=== PATIENT | female | born 1950 | race Caucasian/White ===

== ENCOUNTER → 2018-01-15 09:34 | Outpatient (CLI) | payer OTHER, SELFPAY ==
--- NOTE | 2018-01-15 | DI.MRI.S_ITS ---
PROCEDURE: MR PELVIS WO/W CON INDICATIONS: 68 year-old female with uterine fibroids and right hip region pain. TECHNIQUE: Coronal HASTE, sagittal breath-hold T2 FSE; axial T1 FSE with and without fat saturation through the pelvis. Optional long- and short-axis uterine nonbreath-hold T2 FSE through the uterus. Sagittal or axial dynamic VIBE during administration of contrast. Post-contrast axial or coronal VIBE/2-D FLASH with fat saturation from the iliac crests to the symphysis. Optional diffusion weighted imaging and ADC may be performed. COMPARISON: [facility] Outside Film, CR, XR HIP 2 VIEWS RIGHT, 11/22/2017, 11:00. [facility], CT, ABDOMEN/PELVIS WITHOUT CONTRAS, 02/28/2016, 8:41. FINDINGS: Image quality: Excellent. Uterus: Uterus is normal in size, but demonstrates a 4.4 cm round right fundal subserosal fibroid, with predominant low T2 signal corresponding with calcification on comparison radiograph and CT. Sagittal images demonstrate 2 additional 10 mm posterior subserosal uterine fibroids. Endometrium is normal in thickness at 3 mm. Junctional zone is normal in thickness at 12 mm or less. Adnexa: Both postmenopausal ovaries are normal in size, without suspicious cystic or solid lesions. Urinary system: Bladder wall is normal in thickness. Distal ureters are non distended. Urethra appears normal in morphology. Nodes and vessels: No pelvic or inguinal adenopathy by size criteria. Iliac vessels are normal in size. Bowel and peritoneum: No pathologic free pelvic fluid. Inferior colon and small bowel loops are normal in caliber. Soft tissues: No inguinal hernias. No findings of pelvic floor incompetence in the absence of provocation. The gluteus medius tendinous tendons demonstrate normal signal, without tears. Bones: Marrow demonstrates normal overall signal. There is lower lumbar spine moderate disc degeneration. No hip joint degeneration. IMPRESSION: 1. Three subserosal uterine fibroids, measuring up to 4.4 cm with peripheral calcification in the right uterine fundus, not significantly changed since 2015. 2. No imaging explanation for right hip region pain. 3. Lower lumbar spine disc degeneration. Dictated by: Fausto Monaco M.D. on 01/15/2018 at 12:11 Approved by: Fausto Monaco M.D. on 01/15/2018 at 12:28
== END ==
PROVIDERS: PCP Family Medicine Geriatric Medicine; Visit Provider Family Medicine Geriatric Medicine
DX: D25.2 Subserosal leiomyoma of uterus (principal); M25.551 Pain in right hip; M51.36 Other intervertebral disc degeneration, lumbar region
CPT/HCPCS: 72197

== ENCOUNTER 2019-04-01 09:27 | Day surgery (SDC) | payer OTHER, SELFPAY ==
--- NOTE | 2019-04-01 | PATH_ITS ---
[facility] Accession Number: [id number] . 01 Material submitted: . PART A: small bowel - SMALL BOWEL BIOPSIES PART B: gastrointestinal site - STOMACH BIOPSIES . 01 Clinical history: . A. R/O CELIAC B. R/O H. PYLORI EGD W/POSS BX . 02 Diagnosis: A. Small Bowel Biopsy: Fragments of normal duodenum mucosa. Normal delicate mucosal villi present. Negative for significant inflammtion, dysplasia, and malignancy. . B. Stomach, Biopsies: Mucosal hyperemia without associated significant inflammation involving the antral and fundic mucosa. Negative for evidence of Helicobacter on H/E stain. Negative for intestinal metaplasia. Negative for dysplasia and malignancy. [facility]/04/02/2019 . 02 Electronically signed: . Dilip Sal MD, Pathologist NPI- [id number] . 01 Gross description: . Part A: SMALL BOWEL BIOPSIES: Received in formalin are 2 fragment(s) of wallis, soft tissue measuring 0.1 x 0.1 x 0.1 cm to 0.2 x 0.2 x 0.2 cm which is entirely submitted and submitted entirely in 1 cassette(s) Part B: STOMACH BIOPSIES: Received in formalin are 2 fragment(s) of wallis, soft tissue measuring 0.1 x 0.1 x 0.1 cm to 0.2 x 0.1 x 0.1 cm which is entirely submitted and submitted entirely in 1 cassette(s) /D[facility] /[facility] . 02 Pathologist provided ICD-10: K21.0 . 02 CPT . 717449, [id number] Performed at: [address], [place], [place] [id number] MD Elliott Key MD Phone: [phone] Performed at: 02 [facility] [address] [address] [place] [id number] MD Radha Samuels MD Phone: [phone]
[2019-04-01] MEDS: SODIUM CHLORIDE 0.9% 1,000 ML 42 ML IV (09:47)
[2019-04-01 09:59] VITALS: BP 125/71; PULSE 78; RESP 14; TEMP 36.5; O2SAT 94; BMI 19.5
--- NOTE | 2019-04-01 11:23 | PM.HP.1 ---
History of Present Illness History of Present Illness Date Patient Seen: 04/01/19 Time Patient Seen: 11:23 Chief complaint: [id number] EGD W/POSS BX Narrative: Anemia Patient History Medical History (Updated 04/01/19 @ 10:01 by Jennifer Enriquez, RN) Anemia (Acute ~07/2018) Basal cell carcinoma (Acute) Bursitis of hip, right (Acute) Cataract fragments in both eyes following surgery (Acute) Diverticulosis (Acute) GE reflux (Acute) Hyperlipidemia (Acute) Iron deficiency anemia (Acute) Surgical History (Updated 04/01/19 @ 09:57 by Jennifer Enriquez RN) H/O hernia repair (Acute) H/O shoulder surgery (Acute) History of colonoscopy (Acute) History of tonsillectomy (Acute) Social History household members: spouse Family & Social History Social History: household members spouse Meds Home Medications and Allergies Home Medications Medication Instructions Recorded Confirmed Type calcium carbonate-vitamin D3 cap PO BID 04/01/19 History [Calcium 600 + D(3)] ranitidine HCl 150 mg PO DAILY PRN 04/01/19 04/01/19 History Allergies Allergy/AdvReac Type Severity Reaction Status Date / Time adhesive tape AdvReac Mild Itching, Verified 04/01/19 09:48 Hives Exam Vital Signs (past 8 hours): - 04/01/19 09:59 Temperature 97.7 F Pulse Rate 78 Respiratory Rate 14 Blood Pressure 125/71 Pulse Oximetry 94 Oxygen Delivery Method Room Air Narrative Exam Narrative: Oropharynx free of lesions Chest clear to auscultation percussion Cardiac exam reveals no S3 or murmur Assessment & Plan Assessment & Plan narrative: Anemia with negative colonoscopy. Need for upper tract evaluation and biopsies for celiac. Risks, benefits, alternatives have been explained.
--- NOTE | 2019-04-01 11:24 | PM.OP.ENDO ---
Operative Date/Time/Diagnoses Date of procedure: 04/01/19 Time of procedure: 11:24 Pre-op diagnosis: See indication and findings Procedure & Clinicians Study performed: EGD with biopsy Same procedure as scheduled: Yes Indications: Anemia with negative colonoscopy Surgeon: Elmer Lizama Procedure Notes Procedure in detail: After informed consent was obtained the patient was placed in left lateral decubitus position. The video upper scope was placed into the oropharynx with the patient's help solid into the esophagus. The esophagus, stomach, and duodenum were carefully examined. On withdrawal, retroflexed view the GE junction was performed. The scope was removed. The patient tolerated procedure well. Blood loss none Complications none Sedation Total sedation time
--- NOTE | 2019-04-01 11:41 | PM.OP.ENDO ---
Operative Date/Time/Diagnoses Date of procedure: 04/01/19 Time of procedure: 11:43 Pre-op diagnosis: See indication and findings Procedure & Clinicians Study performed: EGD with biopsy Same procedure as scheduled: Yes Indications: Anemia Surgeon: Elmer Lizama Procedure Notes Procedure in detail: After informed consent was obtained the patient was placed in left lateral decubitus position. The video upper scope was placed into the oropharynx with the patient swelled in the esophagus. The esophagus stomach and duodenum were carefully examined. On withdrawal retroflexed view the GE junction was performed. The scope was removed. The patient tolerated procedure well. Blood loss none Complications none Sedation MAC Findings 1. Grade B esophagitis. 2. 5-6 cm hiatal hernia. One small Gabe lesion may have been present. 3. Moderate erythema in a chao pyloric position biopsies taken to rule out Helicobacter Four. Normal duodenal bulb and sweep. Biopsies taken to rule out celiac We will be in touch with [place] by telephone regarding her pathology results. More than 1 issue may be present. We will review by telephone.
[2019-04-01 11:48] VITALS: BP 99/55; PULSE 79; RESP 19; O2SAT 96
[2019-04-01 11:53] VITALS: BP 112/59; PULSE 75; RESP 20; O2SAT 97
[2019-04-01 11:56] VITALS: TEMP 35.6
[2019-04-01 12:10] VITALS: BP 122/65; PULSE 71; RESP 18; TEMP 36.9; O2SAT 99
== END 2019-04-01 12:25 | disposition home or self-care (01) ==
PROVIDERS: PCP Family Medicine Geriatric Medicine; Visit Provider Internal Medicine Gastroenterology
PROC: 0DJ08ZZ Inspection of Upper Intestinal Tract, Via Natural or Artificial Opening Endoscopic (ICD-10-PCS; CPT 43235; principal; 2019-04-01 11:00)
DX: D64.9 Anemia, unspecified (principal); K21.0 Gastro-esophageal reflux disease with esophagitis; K31.89 Other diseases of stomach and duodenum; K44.9 Diaphragmatic hernia without obstruction or gangrene; E78.5 Hyperlipidemia, unspecified; Z85.828 Personal history of other malignant neoplasm of skin
CPT/HCPCS: 43239; J2704

== ENCOUNTER → 2020-09-15 07:46 | Outpatient (CLI) | payer MEDICARE, OTHER, SELFPAY ==
--- NOTE | 2020-09-15 07:49 | DI.MRI.S_ITS ---
PROCEDURE: MR ANKLE RT WO CON INDICATIONS: PAIN IN HEEL TECHNIQUE: Noncontrast sagittal T1 spin echo and T2 fast spin echo with fat saturation, axial proton density fast spin echo and T2 fast spin echo with fat saturation, coronal T1 spin echo and T2 fast spin echo with fat saturation through the ankle/hindfoot. COMPARISON: [facility] Outside Film, CR, XR FOOT 3+ VIEWS RIGHT, 06/03/2020, 9:26. FINDINGS: Image quality: Excellent. Bones and joints: No bone marrow contusions or fractures. No hindfoot coalitions. No osteochondral injuries of the talar dome. No pathologic joint effusions. Medial structures: The deep and superficial layers of the deltoid ligament appear intact. The spring ligament components are intact. The posterior tibialis, flexor digitorum longus, and flexor hallucis longus tendons are intact. The posterior tibial neurovascular bundle appears normal within the tarsal tunnel, without extrinsic mass effect. Lateral structures: Mild attenuation of the anterior talofibular ligament and mild thickening of the calcaneofibular ligament likely secondary to remote prior sprains. The posterior talofibular ligament is intact. The anterior and posterior tibiofibular ligaments are intact. The peroneus longus and brevis tendons demonstrate normal location and morphology. The sinus tarsi demonstrates normal fatty signal, without edema, fibrosis, or cyst formation. Anterior structures: The tibialis anterior, extensor hallucis longus, and extensor digitorum longus tendons appear intact. The dorsal talonavicular ligament appears intact. Posterior and plantar structures: Achilles tendon is intact. There is hyperintense signal in the proximal plantar fascia compatible with a low-grade partial tear. Mild surrounding soft tissue edema is seen and there is mild edema within a small plantar calcaneal spur. No acute fracture is seen. IMPRESSION: 1. Low-grade partial tearing of the proximal plantar fascia with surrounding soft tissue and osseous edema. 2. Chronic low-grade sprains of the anterior talofibular ligament and calcaneofibular ligament Dictated by: Scott Jones M.D. on 09/15/2020 at 9:20 Approved by: Scott Jones M.D. on 09/15/2020 at 9:39
== END ==
PROVIDERS: PCP Family Medicine; Referring Provider Orthopaedic Surgery Foot and Ankle Surgery; Visit Provider Orthopaedic Surgery Foot and Ankle Surgery
DX: M79.671 Pain in right foot (principal); S93.491A Sprain of other ligament of right ankle, initial encounter; S93.411A Sprain of calcaneofibular ligament of right ankle, initial encounter; M77.31 Calcaneal spur, right foot; M79.89 Other specified soft tissue disorders
CPT/HCPCS: 73721